=== PATIENT | male | born 1955 | race Caucasian/White ===

== ENCOUNTER 2017-08-21 11:22 | Emergency (ER) | payer OTHER, MEDICAID ==
[2017-08-21] MEDS: PERCOCET 5MG/325MG TAB PO (12:24)
[2017-08-21] MEDS: KETOROLAC 60 MG/2 ML VIAL (J1885) IM (13:53)
== END 2017-08-21 14:38 | disposition home or self-care (01) ==
LOC: M ED 11:22
DX: R07.9 Chest pain, unspecified (principal); E07.9 Disorder of thyroid, unspecified; B19.20 Unspecified viral hepatitis C without hepatic coma; Z88.0 Allergy status to penicillin; Z79.899 Other long term (current) drug therapy; Z96.641 Presence of right artificial hip joint
CPT/HCPCS: J1885

== ENCOUNTER → 2017-10-15 | Outpatient (CLI) | payer OTHER, MEDICAID ==
[2017-10-15 12:20] LABS: ALBUMIN 3.7 GM/DL (3.2-5.2); ALBUMIN/GLOBULIN RATIO 1.19 (1.00-1.93); ALKALINE PHOSPHATASE 55 U/L (45-117); ALT/SGPT 22 U/L (12-78); AST/SGOT 23 U/L (7-37); BILIRUBIN,DIRECT 0.1 MG/DL (0.0-0.2); BILIRUBIN,TOTAL 0.4 MG/DL (0.2-1.0); TOTAL PROTEIN 6.8 GM/DL (6.4-8.2)
== END ==
LOC: M LAB 10:49
DX: E11.9 Type 2 diabetes mellitus without complications (principal)
CPT/HCPCS: 80076

== ENCOUNTER → 2018-09-08 | Outpatient (CLI) | payer OTHER ==
[~2018-09-08] MED LIST: LEVO137T14 PO; PANT40TA3 PO; PERC5TAB12 PO; SILD50TA GT
[2018-09-08 11:40] LABS: BASO % 0.5 % (0.0-1.0); EOS # 0.4 10^3/uL (0.0-0.50); EOS % 4.4 % (0.0-3.0); HEMATOCRIT 43.9 % (42.0-52.0); HEMOGLOBIN 14.9 g/dl (13.5-17.5); LYMPH # 1.9 10^3/uL (1.5-4.5); LYMPH % 23.2 % (24.0-44.0); MEAN CORPUSCULAR HEMOGLOBIN 29.9 pg (27.0-33.0); MEAN CORPUSCULAR HGB CONC 33.9 g/dl (32.0-36.5); MEAN CORPUSCULAR VOLUME 88.2 fl (80.0-96.0); MONO % 12.2 % (0.0-5.0); NEUTROPHILS # 4.7 10^3/uL (1.8-7.7); NEUTROPHILS % 59.2 % (36.0-66.0); PLATELET COUNT, AUTOMATED 208 10^3/uL (150-450); RED BLOOD COUNT 4.98 10^6/uL (4.30-6.10)
[2018-09-08 12:11] LABS: ALBUMIN 3.8 GM/DL (3.2-5.2); PERCENT SATURATION 17.6 % (19.7-50.0)
== END ==
LOC: M LAB 10:57
PROVIDERS: ATTEND Family Medicine
DX: Z01.818 Encounter for other preprocedural examination (principal); M16.12 Unilateral primary osteoarthritis, left hip; D50.9 Iron deficiency anemia, unspecified

== ENCOUNTER 2019-04-19 08:34 | Day surgery (SDC) | payer MEDICARE, MEDICAID ==
[~2019-04-19] VITALS: Ht 180.3 cm; Wt 102.5 kg
[~2019-04-19 08:34] MED LIST changes: +B COCAP4 PO; +CALC-132 PO; +CLINDAMYCIN 900 MG in IV 1 EA IV ONE; +CYAN2500 PO; +HM P99TA PO; +IRON65TA2 PO; +LIDOCAINE 1% MDV 20ML VIAL SQ PRN; +LIDOCAINE 2% INJ 100 MG/5 ML SDV (FOR ANES.) As Ordered ONE; +LR 1,000 ML IV ONE; +MIDAZOLAM INJ 2 MG/2 ML VIAL (J2250) As Ordered ONE; +NATU1TAB5 PO; +OYST1TAB PO; +VITA100T59 PO; +VITA400C56 PO; +VITA40TA PO; +ZINC1TAB2 PO; +[UNRECOGNIZED DRUG - CODE] PO; +fentaNYL 250 MCG/5 ML INJECTION (J3010) As Ordered ONE; +propofoL 200 MG/20 ML VIAL As Ordered ONE
[2019-04-19] MEDS ORDERED: BUPIVACAINE HCL 0.5% 30 ML VIAL As Ordered ONE (10:05)
[2019-04-19] MEDS ORDERED: KETOROLAC 60 MG/2 ML VIAL (J1885) As Ordered ONE (10:39)
[2019-04-19] MEDS ORDERED: ONDANSETRON 4MG/2ML VIAL (J2405) As Ordered ONE (10:39)
[2019-04-19] MEDS ORDERED: dexameTHASONE 4 MG/ML 1ML VIAL (J1100) As Ordered ONE (10:39)
[2019-04-19] MEDS ORDERED: DESFLURANE 240 ML INHALANT As Ordered ONE (12:55)
[2019-04-19] MEDS ORDERED: fentaNYL 100 MCG/2 ML INJECTION (J3010) IV PRN (15:00)
[2019-04-19] MEDS ORDERED: METOCLOPRAMIDE INJ 10MG/2ML VIAL (J2765) IV PRN (15:00)
[2019-04-19] MEDS ORDERED: PERCOCET 5MG/325MG TAB PO PRN (15:00)
[2019-04-19] MEDS ORDERED: LR 1,000 ML IV SCH (15:00)
[2019-04-19] MEDS ORDERED: ONDANSETRON 4MG/2ML VIAL (J2405) IV PRN (15:00)
[2019-04-19 15:55] VITALS: BP 138/79
--- NOTE | 2019-04-20 21:36 | RO ---
DATE OF PROCEDURE: 04/19/2019 PREPROCEDURE DIAGNOSES: Right hallux valgus deformity and 2nd and 3rd hammertoes with lateral subluxation. POSTPROCEDURE DIAGNOSES: Right hallux valgus deformity and 2nd and 3rd hammertoes with lateral subluxation. PROCEDURE: 1. Right Bogdan osteotomy of the great toe. 2. Right silver osteotomy of the 1st metatarsal/medial eminence resection. 3. 2nd metatarsal shortening osteotomy. 4. 3rd metatarsal shortening osteotomy. 5. 2nd hammertoe repair with proximal interphalangeal (PIP) fusion and extensor digitorum longus (EDL) lengthening and pinning. 6. 3rd hammertoe repair with EDL lengthening and pinning. SURGEON: Dejah Iqbal MD DYNAMICIST: JOSE Acevedo ANESTHESIA: LMA. ESTIMATED BLOOD LOSS: 25 mL. COMPLICATIONS: None. CONDITION: Stable to recovery. IMPLANTS: 1. BME Speed Staple 9 x 7 times one. 2. Arthrex 12 mm snap-off screws x2. 3. 1.6mm k wires x2 INDICATIONS: Antonio Delarosa is a 63-year-old male who has had significant pain due to lateral deviation of 2nd and 3rd hammertoes. He has failed conservative measures. Risks and benefits of surgery were discussed with the patient in detail and include but are not limited to infection, damage to nerves and blood vessels, continued pain and stiffness, need for additional procedures. Informed consent was obtained prior to the procedure. DESCRIPTION OF PROCEDURE: The patient was met in the holding area where his right 1st, 2nd, 3rd and 4th toes were marked. There was a possibility of operating on the 4th toe; however, this did not need to be done. He was then taken to the operating room and placed in the supine position on the operating room table. Bony prominences were well padded. He underwent general anesthesia without difficulty. Antibiotics were given within 60 minutes prior to incision. A bump was placed under the right hip. Right lower extremity was prepped and draped in the normal sterile fashion. An official time-out was held where the correct patient, operative site and operative procedure were verified. Appropriate radiographs were displayed in the operating room. At this point, incision was made in the 2nd webspace. The 2nd EDL tendon was identified and Z-lengthened. A segment of the extensor digitorum brevis (EDB) tendon was excised. A longitudinal capsulotomy was performed. Care was made to ensure the medial and collateral ligaments remained intact over the metatarsal. I did release all tissue off the lateral aspect of the proximal phalanx given the significant lateral subluxation of the toe itself. Following this, the 3rd toe was approached using a separate interval but the same incision. The EDL tendon also was Z-lengthened. A segment of the EDB tendon was excised. Similarly, a longitudinal capsulotomy was performed and all tissue was removed off the lateral aspect of the proximal phalanx. At this point, I was still not able to gain full reduction of the toe, so a decision was made to proceed with a Misty osteotomy of the 2nd and 3rd metatarsal. This was done using a 38 saw. On the 2nd toe, I shortened it approximately 4 mm. I shortened the 5th toe approximately 5 mm. These were secured in place using a #2-0 snap-off screw from Arthrex, 12 mm in length. Final position of the osteotomies were confirmed on mini C-arm, which I operated throughout the case. There was satisfactory alignment and a nice cascade of the metatarsal heads. Next, attention was turned back to the 2nd toe. When it was adequately reduced, the great toe did impede on it. I did move my attention to the great toe at this point. A medial incision was made over the proximal phalanx and 1st metatarsal head. Careful dissection was performed to avoid the dorsomedial sensory nerve. Capsule was incised. A medial eminence resection was performed. 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 Next, a 0.062 wire was used to jairo my osteotomy site for the Bogdan osteotomy of the proximal phalanx. When I was satisfied with this on imaging, the wire was removed and the cut was made using a 38 mm saw. A small wedge was taken. The toe was secured in place using a 9 x 7 mm BME Speed Staple. There was adequate fixation. The capsule was slightly tightened using #0 Vicryl. The great toe was in adequate position at this point. My attention was turned back to the 2nd toe. There was still significant lateral drift, a portion of which was due to deviation through the PIP and DIP joints. A decision was made to fuse the PIP joint of the 2nd toe. Incision was made over the PIP joint and the extensor tendon was incised. The joint was removed using a 39 saw and pinned in place. I did reef the medial capsule as well to help bring the joint over; however, given its chronic subluxation, it was still slightly laterally sublux. I did decide to pin across the metatarsophalangeal (MTP) joint. This was done just slightly across the joint and x-rays showed adequate placement. It was not necessary to pin across the 3rd MTP joint. The toe was pinned in place without fusing the PIP joint. It was slightly plantar flexed down with Steri-Strips at the end of the case. Copious irrigation was performed. The 2nd and 3rd EDL tendons were Z-lengthened and secured with appropriate tension using #3-0 Vicryl. Subcutaneous tissue was closed using #3-0 Vicryl and skin was closed using #3-0 nylon and then #4-0 Monocryl over the PIP site. Tourniquet was let down and the toes were warm and well perfused at the end of the case. A sterile dressing was applied. The patient was placed into a well-padded splint. JOSE Acevedo was present for the entire procedure and essential for aid in soft tissue retraction, hardware placement, and overall decrease in tourniquet time. PLAN: The patient will be non-weightbearing on the right lower extremity. He will keep a close eye on his toes to make sure that they remain perfused. I did speak to his about this as well. I will see him back in 2 weeks for a wound check and possible suture removal. The max he should elevate it would be only one pillow. Any issues he will let us know. He will also be on aspirin for deep vein thrombosis (DVT) prophylaxis. THANG
== END 2019-04-19 16:26 | disposition home or self-care (01) ==
LOC: M SDC 08:34
PROVIDERS: ATTEND Orthopaedic Surgery
DX: M20.11 Hallux valgus (acquired), right foot (principal); M20.41 Other hammer toe(s) (acquired), right foot; M21.611 Bunion of right foot; E03.9 Hypothyroidism, unspecified; Z87.891 Personal history of nicotine dependence; Z79.899 Other long term (current) drug therapy; Z88.0 Allergy status to penicillin
CPT/HCPCS: 28285; 28298; 28308; 73630; C1713; J1100; J1885; J2250; J2405; J3010

== ENCOUNTER → 2020-01-04 | Outpatient (CLI) | payer MEDICARE, MEDICAID ==
[~2020-01-04] MED LIST changes: -CLINDAMYCIN 900 MG in IV 1 EA IV ONE; -LIDOCAINE 1% MDV 20ML VIAL SQ PRN; -LIDOCAINE 2% INJ 100 MG/5 ML SDV (FOR ANES.) As Ordered ONE; -LR 1,000 ML IV ONE; -MIDAZOLAM INJ 2 MG/2 ML VIAL (J2250) As Ordered ONE; -fentaNYL 250 MCG/5 ML INJECTION (J3010) As Ordered ONE; -propofoL 200 MG/20 ML VIAL As Ordered ONE
--- NOTE | 2020-01-05 17:25 | REP ---
REASON: Chronic hepatitis. Priors reviewed. Multiple ultrasonographic images of the liver show the hepatic parenchymal echo pattern to have a heterogenous appearance. The gallbladder is contracted. The common bile duct measures 6 mm. There are no masses. The pancreas is unchanged. The right kidney is again seen to be within normal limits. IMPRESSION: There is no evidence of acute disease. The hepatic parenchymal echo pattern is somewhat heterogeneous, but there are no masses.
== END ==
LOC: M PLAIMG 09:05
PROVIDERS: ATTEND Physician Assistant
DX: B18.2 Chronic viral hepatitis C (principal); K74.0 Hepatic fibrosis

== ENCOUNTER → 2020-01-04 | Outpatient (CLI) | payer MEDICARE, MEDICAID ==
[2020-01-04 13:57] LABS: ALBUMIN 3.7 GM/DL (3.2-5.2); ALT/SGPT 25 U/L (12-78); BILIRUBIN,DIRECT 0.1 MG/DL (0.0-0.2); BILIRUBIN,TOTAL 0.4 MG/DL (0.2-1.0); TOTAL PROTEIN 6.4 GM/DL (6.4-8.2)
[2020-01-07 05:07] LABS: HEPATITIS C QUANTITATION HCV Not Detected IU/mL (.)
== END ==
LOC: M PLALAB 09:36
PROVIDERS: ATTEND Physician Assistant
DX: B18.2 Chronic viral hepatitis C (principal); K74.0 Hepatic fibrosis

== ENCOUNTER → 2020-02-02 | Outpatient (CLI) | payer MEDICARE, MEDICAID ==
[~2020-02-02] MED LIST changes: +PANT40TA29 PO; -PANT40TA3 PO
[2020-02-02 16:10] LABS: HEMOGLOBIN A1c 5.3 %
[2020-02-02 16:26] LABS: FREE T4 0.72 NG/DL (0.76-1.46); RHEUMATOID FACTOR QUANT < 10.0 IU/ML (<15.0)
[2020-02-02 16:28] LABS: FOLATE 14.1 NG/ML; VITAMIN B12 LEVEL 1372 PG/ML
[2020-02-03 14:31] LABS: ALBUMIN % 64.5 % (55.8-66.1); ALPHA-1-GLOBULIN % 3.6 % (2.9-4.9); ALPHA-2-GLOBULINS % 11.4 % (7.1-11.8); BETA-1-GLOBULINS % 5.7 % (4.7-7.2); BETA-2-GLOBULINS % 4.6 % (3.2-6.5); GAMMA GLOBULIN % 10.2 % (11.1-18.8)
[2020-02-03 14:32] LABS: ALBUMIN 4.52 GM/DL (3.29-5.55); ALPHA-1-GLOBULINS 0.25 GM/DL (0.17-0.41); BETA-2-GLOBULINS 0.32 GM/DL (0.19-0.55); GAMMA GLOBULINS 0.71 GM/DL (0.65-1.58)
[2020-02-08 19:07] LABS: ANTINUCLEAR ANTIBODIES DIRECT Negative (Negative); Methylmalonic Acid 146 nmol/L (0-378); SJOGREN'S ANTI SS-A <0.2 AI (0.0-0.9); SJOGREN'S ANTI SS-B <0.2 AI (0.0-0.9); VITAMIN B1 LEVEL WHOLE BLOOD 171.9 nmol/L (66.5-200.0); VITAMIN B6,PYRIDOXAL PHOSPHATE 42.7 ug/L (5.3-46.7); VITAMIN E(GAMMA TOCOPHEROL) 0.7 mg/L (0.5-4.9)
== END ==
LOC: M PLALAB 13:55
PROVIDERS: ATTEND Psychiatry & Neurology Neurology
DX: G62.9 Polyneuropathy, unspecified (principal); E07.9 Disorder of thyroid, unspecified; E11.9 Type 2 diabetes mellitus without complications; Q87.19 Other congenital malformation syndromes predominantly associated with short stature

== ENCOUNTER → 2020-03-15 | Outpatient (REF) | payer MEDICARE, MEDICAID ==
[2020-03-15 16:06] LABS: COLOR, URINE MANUAL YELLOW (YELLOW)
[2020-03-15 16:07] LABS: APPEARANCE, URINE MANUAL HAZY (CLEAR); BILIRUBIN, URINE MANUAL NEGATIVE (NEGATIVE); BLOOD URINE MANUAL NEGATIVE (NEGATIVE); GLUCOSE, URINE (UA) MANUAL NEGATIVE (NEGATIVE); KETONE, URINE MANUAL NEGATIVE (NEGATIVE); LEUKOCYTE ESTERASE, URINE MAN NEGATIVE (NEGATIVE); NITRITE, URINE MANUAL NEGATIVE (NEGATIVE); PH,URINE MAN 7.5 UNITS (5.0 - 7.0); PROTEIN, URINE MANUAL NEGATIVE (NEGATIVE); SPECIFIC GRAVITY,URINE MANUAL 1.015 (1.002-1.035); UROBILINOGEN, URINE MANUAL NORMAL (NORMAL)
[2020-03-15 16:13] LABS: AMORPHOUS SEDIMENT, URINE LARGE AMOUNT (NEGATIVE); BACTERIA, URINE NONE SEEN; HYALINE CAST, URINE NONE SEEN /lpf (0-1); RBC, URINE NONE SEEN /hpf (0-3); SQUAMOUS EPITHELIAL CELL URINE NONE SEEN /hpf (SMALL AMT)
[2020-03-15 16:55] LABS: BASO % 0.5 % (0.0-1.0); EOS # 0.1 10^3/uL (0.0-0.5); EOS % 2.7 % (0.0-3.0); HEMATOCRIT 45.4 % (42.0-52.0); LYMPH # 1.5 10^3/uL (1.5-5.0); LYMPH % 35.5 % (24.0-44.0); MEAN CORPUSCULAR HEMOGLOBIN 30.7 pg (27.0-33.0); MONO # 0.5 10^3/uL (0.0-0.8); MONO % 12.2 % (0.0-5.0); NEUTROPHILS % 48.9 % (36.0-66.0); PLATELET COUNT, AUTOMATED 201 10^3/uL (150-450); RED BLOOD COUNT 4.88 10^6/uL (4.30-6.10); WHITE BLOOD COUNT 4.1 10^3/uL (4.0-10.0)
[2020-03-15 17:43] LABS: BLOOD UREA NITROGEN 17 MG/DL (7-18); CALCIUM LEVEL 9.2 MG/DL (8.8-10.2); CARBON DIOXIDE LEVEL 32 MEQ/L (21-32); CHLORIDE LEVEL 104 MEQ/L (98-107); CREATININE FOR GFR 1.23 MG/DL (0.70-1.30); GLOMERULAR FILTRATION RATE > 60.0 (>49); GLUCOSE, FASTING 97 MG/DL (70-100); POTASSIUM SERUM 4.5 MEQ/L (3.5-5.1); SODIUM LEVEL 140 MEQ/L (136-145)
[2020-03-15 19:07] LABS: HEMOGLOBIN A1c 5.4 %
== END ==
LOC: M LABSMT 13:34
PROVIDERS: ATTEND Orthopaedic Surgery Orthopaedic Surgery of the Spine
DX: Z01.818 Encounter for other preprocedural examination (principal)

== ENCOUNTER → 2020-06-15 | Outpatient (CLI) | payer MEDICARE, MEDICAID | LOC: M PLALAB 11:26 | PROVIDERS: ATTEND Orthopaedic Surgery | DX: Z96.642 Presence of left artificial hip joint (principal); T56.891A Toxic effect of other metals, accidental (unintentional), initial encounter ==

== ENCOUNTER → 2021-02-26 | Outpatient (CLI) | payer MEDICARE, MEDICAID ==
[~2021-02-26] MED LIST changes: -HM P99TA PO; +POTA99TA14 PO
[2021-02-26 08:31] LABS: ALBUMIN 3.8 GM/DL (3.2-5.2); BILIRUBIN,DIRECT 0.1 MG/DL (0.0-0.2); BILIRUBIN,TOTAL 0.5 MG/DL (0.2-1.0)
--- NOTE | 2021-02-26 09:12 | REP ---
INDICATION: HEP C PT HAS LABS FIRST. COMPARISON: Abdomen/pelvis CT without IV contrast dated 12/18/2005, hepatic ultrasound dated 06/20/2014, hepatic ultrasound dated 01/04/2020. TECHNIQUE: Multiple ultrasonographic images of the abdominal right upper quadrant. FINDINGS: The gallbladder is partially contracted. There are 2 echogenic foci in the body and neck of the gallbladder the larger measuring 5.8 mm in diameter and the smaller measuring 2.5 mm in diameter. These may represent adherent gallbladder calculi or calcified gallbladder polyps. They are nonmobile. The gallbladder wall is thickened measuring up to 5.8 mm. However, this is likely a consequence of incomplete gallbladder distention. There is no pericholecystic fluid. The common biliary duct is dilated measuring up to 6.5 mm, however, this is unchanged from the prior ultrasound study of 01/04/2020. There is no intrahepatic biliary duct dilatation. There are limited views of the pancreas because of the interfering bowel gas. The right kidney is normal size measuring 11.4 x 6.1 x 4.7 cm. There is no renal calculus, hydronephrosis, cyst or mass. There is no intraperitoneal free fluid. IMPRESSION: There are no hepatic masses. No a patent nodularity. The common biliary duct is dilated as described, however, unchanged from 01/04/2020. No intrahepatic biliary duct dilatation. No free intraperitoneal fluid. Limited views of the pancreas because of bowel gas. <Electronically signed by Usman Garcia > 02/26/21 [id number]
== END ==
LOC: M LAB 07:33 → M RAD 07:33
PROVIDERS: ATTEND Physician Assistant
DX: B18.2 Chronic viral hepatitis C (principal); K74.00 Hepatic fibrosis, unspecified; Z86.010 Personal history of colon polyps; Z83.71 Family history of colonic polyps

== ENCOUNTER → 2021-08-14 | Outpatient (CLI) | payer MEDICARE, MEDICAID ==
[2021-08-14 14:28] LABS: BASO % 0.4 % (0.0-1.0); EOS # 0.1 10^3/uL (0.0-0.5); EOS % 1.6 % (0.0-3.0); HEMATOCRIT 45.4 % (42.0-52.0); HEMOGLOBIN 15.1 g/dl (13.5-17.5); LYMPH # 1.6 10^3/uL (1.5-5.0); LYMPH % 20.6 % (24.0-44.0); MEAN CORPUSCULAR HEMOGLOBIN 29.6 pg (27.0-33.0); MEAN CORPUSCULAR HGB CONC 33.3 g/dl (32.0-36.5); MONO # 1.2 10^3/uL (0.0-0.8); MONO % 15.2 % (2.0-8.0); NEUTROPHILS # 4.7 10^3/uL (1.5-8.5); NEUTROPHILS % 61.7 % (36.0-66.0); PLATELET COUNT, AUTOMATED 199 10^3/uL (150-450); WHITE BLOOD COUNT 7.6 10^3/uL (4.0-10.0)
[2021-08-14 14:59] LABS: BLOOD UREA NITROGEN 22 MG/DL (7-18); CALCIUM LEVEL 9.9 MG/DL (8.8-10.2); CARBON DIOXIDE LEVEL 28 MEQ/L (21-32); CHLORIDE LEVEL 106 MEQ/L (98-107); CREATININE FOR GFR 1.24 MG/DL (0.70-1.30); GLOMERULAR FILTRATION RATE > 60.0 (>49); GLUCOSE, FASTING 100 MG/DL (70-100); POTASSIUM SERUM 4.6 MEQ/L (3.5-5.1); SODIUM LEVEL 141 MEQ/L (136-145)
== END ==
LOC: M LAB 13:58
PROVIDERS: ATTEND Orthopaedic Surgery
DX: Z01.818 Encounter for other preprocedural examination (principal); M17.12 Unilateral primary osteoarthritis, left knee

== ENCOUNTER → 2022-03-18 | Outpatient (REF) | payer MEDICARE, MEDICAID ==
[2022-03-18 12:14] LABS: BASO # 0.1 10^3/uL (0.0-0.2); BASO % 0.5 % (0.0-1.0); EOS # 0.3 10^3/uL (0.0-0.5); HEMATOCRIT 33.7 % (42.0-52.0); HEMOGLOBIN 11.1 g/dl (13.5-17.5); LYMPH # 1.5 10^3/uL (1.5-5.0); LYMPH % 13.3 % (24.0-44.0); MEAN CORPUSCULAR HGB CONC 32.9 g/dl (32.0-36.5); MEAN CORPUSCULAR VOLUME 85.1 fl (80.0-96.0); MONO # 1.2 10^3/uL (0.0-0.8); MONO % 10.5 % (2.0-8.0); NEUTROPHILS # 7.5 10^3/uL (1.5-8.5); NEUTROPHILS % 68.1 % (36.0-66.0); PLATELET COUNT, AUTOMATED 385 10^3/uL (150-450); RED BLOOD COUNT 3.96 10^6/uL (4.30-6.10)
[2022-03-18 12:41] LABS: ERYTHROCYTE SEDIMENTATION RATE 86 mm/hr (0-20)
[2022-03-18 13:00] LABS: ALBUMIN 2.3 GM/DL (3.2-5.2); ALT/SGPT 16 U/L (12-78); BILIRUBIN,TOTAL 0.6 MG/DL (0.2-1.0); BLOOD UREA NITROGEN 8 MG/DL (7-18); CALCIUM LEVEL 8.1 MG/DL (8.8-10.2); CARBON DIOXIDE LEVEL 30 MEQ/L (21-32); CHLORIDE LEVEL 101 MEQ/L (98-107); GLOMERULAR FILTRATION RATE > 60.0 (>49); GLUCOSE, FASTING 109 MG/DL (70-100); SODIUM LEVEL 136 MEQ/L (136-145); TOTAL PROTEIN 5.9 GM/DL (6.4-8.2)
== END ==
LOC: M LAB REF 11:47
PROVIDERS: ATTEND Nurse Practitioner Family
DX: M00.9 Pyogenic arthritis, unspecified (principal); A49.8 Other bacterial infections of unspecified site; Z79.2 Long term (current) use of antibiotics

== ENCOUNTER → 2022-03-18 | Outpatient (REF) | payer MEDICARE, MEDICAID ==
[2022-03-18 12:09] LABS: BASO # 0.1 10^3/uL (0.0-0.2); BASO % 0.5 % (0.0-1.0); EOS # 0.3 10^3/uL (0.0-0.5); EOS % 2.6 % (0.0-3.0); HEMATOCRIT 33.8 % (42.0-52.0); HEMOGLOBIN 11.1 g/dl (13.5-17.5); LYMPH # 1.5 10^3/uL (1.5-5.0); LYMPH % 13.7 % (24.0-44.0); MEAN CORPUSCULAR HGB CONC 32.8 g/dl (32.0-36.5); MEAN CORPUSCULAR VOLUME 85.4 fl (80.0-96.0); MONO # 1.2 10^3/uL (0.0-0.8); MONO % 10.5 % (2.0-8.0); NEUTROPHILS # 7.6 10^3/uL (1.5-8.5); NEUTROPHILS % 67.8 % (36.0-66.0); PLATELET COUNT, AUTOMATED 388 10^3/uL (150-450); RED BLOOD COUNT 3.96 10^6/uL (4.30-6.10); WHITE BLOOD COUNT 11.2 10^3/uL (4.0-10.0)
[2022-03-18 13:16] LABS: ALBUMIN 2.2 GM/DL (3.2-5.2); ALT/SGPT 18 U/L (12-78); BILIRUBIN,DIRECT 0.2 MG/DL (0.0-0.2); BILIRUBIN,TOTAL 0.6 MG/DL (0.2-1.0); CREATININE FOR GFR 0.82 MG/DL (0.70-1.30); GLOMERULAR FILTRATION RATE > 60.0 (>49); TOTAL PROTEIN 5.9 GM/DL (6.4-8.2)
== END ==
LOC: M LAB REF 11:45
PROVIDERS: ATTEND Internal Medicine Infectious Disease
DX: M00.9 Pyogenic arthritis, unspecified (principal); A49.8 Other bacterial infections of unspecified site; Z79.2 Long term (current) use of antibiotics

== ENCOUNTER → 2022-03-25 | Outpatient (REF) | payer MEDICARE, MEDICAID ==
[2022-03-25 13:56] LABS: BASO # 0.1 10^3/uL (0.0-0.2); BASO % 0.9 % (0.0-1.0); EOS # 0.3 10^3/uL (0.0-0.5); EOS % 3.9 % (0.0-3.0); HEMATOCRIT 35.8 % (42.0-52.0); HEMOGLOBIN 11.1 g/dl (13.5-17.5); LYMPH # 1.7 10^3/uL (1.5-5.0); LYMPH % 25.1 % (24.0-44.0); MEAN CORPUSCULAR HEMOGLOBIN 26.9 pg (27.0-33.0); MEAN CORPUSCULAR VOLUME 86.7 fl (80.0-96.0); MONO # 0.8 10^3/uL (0.0-0.8); MONO % 11.8 % (2.0-8.0); NEUTROPHILS # 3.9 10^3/uL (1.5-8.5); NEUTROPHILS % 57.6 % (36.0-66.0); PLATELET COUNT, AUTOMATED 400 10^3/uL (150-450); RED BLOOD COUNT 4.13 10^6/uL (4.30-6.10); WHITE BLOOD COUNT 6.7 10^3/uL (4.0-10.0)
[2022-03-25 14:42] LABS: ERYTHROCYTE SEDIMENTATION RATE 70 mm/hr (0-20)
[2022-03-25 16:05] LABS: ALBUMIN 2.6 GM/DL (3.2-5.2); ALT/SGPT 16 U/L (12-78); BILIRUBIN,TOTAL 0.5 MG/DL (0.2-1.0); BLOOD UREA NITROGEN 10 MG/DL (7-18); C REACTIVE PROTEIN QUANTITATIV 5.48 MG/DL (0.00-0.30); CALCIUM LEVEL 8.7 MG/DL (8.8-10.2); CARBON DIOXIDE LEVEL 31 MEQ/L (21-32); CHLORIDE LEVEL 103 MEQ/L (98-107); CREATININE FOR GFR 0.94 MG/DL (0.70-1.30); GLOMERULAR FILTRATION RATE > 60.0 (>49); GLUCOSE, FASTING 97 MG/DL (70-100); POTASSIUM SERUM 4.4 MEQ/L (3.5-5.1); SODIUM LEVEL 138 MEQ/L (136-145); TOTAL PROTEIN 6.3 GM/DL (6.4-8.2)
== END ==
LOC: M LAB REF 13:16
PROVIDERS: ATTEND Internal Medicine Infectious Disease
DX: Z51.81 Encounter for therapeutic drug level monitoring (principal); Z79.2 Long term (current) use of antibiotics

== ENCOUNTER → 2022-04-01 | Outpatient (REF) | payer MEDICARE, MEDICAID ==
[2022-04-01 13:00] LABS: BASO % 0.7 % (0.0-1.0); EOS # 0.3 10^3/uL (0.0-0.5); EOS % 4.4 % (0.0-3.0); HEMOGLOBIN 11.6 g/dl (13.5-17.5); LYMPH # 1.5 10^3/uL (1.5-5.0); LYMPH % 25.3 % (24.0-44.0); MEAN CORPUSCULAR HGB CONC 31.4 g/dl (32.0-36.5); MONO # 0.9 10^3/uL (0.0-0.8); MONO % 14.8 % (2.0-8.0); NEUTROPHILS # 3.2 10^3/uL (1.5-8.5); NEUTROPHILS % 54.3 % (36.0-66.0); PLATELET COUNT, AUTOMATED 289 10^3/uL (150-450); WHITE BLOOD COUNT 5.9 10^3/uL (4.0-10.0)
[2022-04-01 13:33] LABS: ALT/SGPT 14 U/L (12-78); BILIRUBIN,DIRECT 0.1 MG/DL (0.0-0.2); BILIRUBIN,TOTAL 0.5 MG/DL (0.2-1.0); BLOOD UREA NITROGEN 10 MG/DL (7-18); CARBON DIOXIDE LEVEL 28 MEQ/L (21-32); CHLORIDE LEVEL 102 MEQ/L (98-107); CREATININE FOR GFR 0.89 MG/DL (0.70-1.30); GLOMERULAR FILTRATION RATE > 60.0 (>49); GLUCOSE, FASTING 82 MG/DL (70-100); POTASSIUM SERUM 4.4 MEQ/L (3.5-5.1); SODIUM LEVEL 136 MEQ/L (136-145); TOTAL PROTEIN 6.4 GM/DL (6.4-8.2)
[2022-04-01 13:47] LABS: ERYTHROCYTE SEDIMENTATION RATE 56 mm/hr (0-20)
== END ==
LOC: M LAB REF 12:42
PROVIDERS: ATTEND Internal Medicine Infectious Disease
DX: M00.9 Pyogenic arthritis, unspecified (principal); A49.8 Other bacterial infections of unspecified site; Z79.2 Long term (current) use of antibiotics

== ENCOUNTER → 2022-04-08 | Outpatient (REF) | payer MEDICARE, MEDICAID ==
[2022-04-08 17:50] LABS: BASO # 0.1 10^3/uL (0.0-0.2); BASO % 0.9 % (0.0-1.0); EOS # 0.4 10^3/uL (0.0-0.5); EOS % 7.8 % (0.0-3.0); HEMATOCRIT 37.8 % (42.0-52.0); HEMOGLOBIN 11.5 g/dl (13.5-17.5); LYMPH # 1.2 10^3/uL (1.5-5.0); LYMPH % 20.6 % (24.0-44.0); MEAN CORPUSCULAR HEMOGLOBIN 26.8 pg (27.0-33.0); MEAN CORPUSCULAR HGB CONC 30.4 g/dl (32.0-36.5); MEAN CORPUSCULAR VOLUME 88.1 fl (80.0-96.0); MONO # 0.8 10^3/uL (0.0-0.8); NEUTROPHILS # 3.2 10^3/uL (1.5-8.5); NEUTROPHILS % 56.2 % (36.0-66.0); PLATELET COUNT, AUTOMATED 211 10^3/uL (150-450); RED BLOOD COUNT 4.29 10^6/uL (4.30-6.10); WHITE BLOOD COUNT 5.6 10^3/uL (4.0-10.0)
[2022-04-08 18:45] LABS: ALBUMIN 3.2 GM/DL (3.2-5.2); ALT/SGPT 11 U/L (12-78); BILIRUBIN,DIRECT 0.2 MG/DL (0.0-0.2); BILIRUBIN,TOTAL 0.5 MG/DL (0.2-1.0); BLOOD UREA NITROGEN 10 MG/DL (7-18); C REACTIVE PROTEIN QUANTITATIV 3.27 MG/DL (0.00-0.30); CALCIUM LEVEL 8.9 MG/DL (8.8-10.2); CARBON DIOXIDE LEVEL 27 MEQ/L (21-32); CHLORIDE LEVEL 103 MEQ/L (98-107); GLOMERULAR FILTRATION RATE > 60.0 (>49); GLUCOSE, FASTING 123 MG/DL (70-100); SODIUM LEVEL 137 MEQ/L (136-145); TOTAL PROTEIN 6.4 GM/DL (6.4-8.2)
[2022-04-08 20:55] LABS: ERYTHROCYTE SEDIMENTATION RATE 45 mm/hr (0-20)
== END ==
LOC: M LAB REF 17:01
PROVIDERS: ATTEND Internal Medicine Infectious Disease
DX: M00.9 Pyogenic arthritis, unspecified (principal); A49.8 Other bacterial infections of unspecified site; Z79.2 Long term (current) use of antibiotics

== ENCOUNTER → 2022-04-15 | Outpatient (REF) | payer MEDICARE, MEDICAID ==
[2022-04-15 13:29] LABS: BASO % 0.7 % (0.0-1.0); EOS # 0.5 10^3/uL (0.0-0.5); EOS % 8.2 % (0.0-3.0); HEMATOCRIT 35.8 % (42.0-52.0); HEMOGLOBIN 11.4 g/dl (13.5-17.5); LYMPH # 1.3 10^3/uL (1.5-5.0); LYMPH % 21.8 % (24.0-44.0); MEAN CORPUSCULAR HEMOGLOBIN 27.6 pg (27.0-33.0); MEAN CORPUSCULAR HGB CONC 31.8 g/dl (32.0-36.5); MEAN CORPUSCULAR VOLUME 86.7 fl (80.0-96.0); MONO # 0.8 10^3/uL (0.0-0.8); NEUTROPHILS # 3.3 10^3/uL (1.5-8.5); NEUTROPHILS % 54.6 % (36.0-66.0); PLATELET COUNT, AUTOMATED 238 10^3/uL (150-450); RED BLOOD COUNT 4.13 10^6/uL (4.30-6.10)
[2022-04-15 14:07] LABS: ERYTHROCYTE SEDIMENTATION RATE 52 mm/hr (0-20)
[2022-04-15 15:09] LABS: ALBUMIN 3.1 GM/DL (3.2-5.2); ALT/SGPT 10 U/L (12-78); BILIRUBIN,TOTAL 0.5 MG/DL (0.2-1.0); BLOOD UREA NITROGEN 11 MG/DL (7-18); C REACTIVE PROTEIN QUANTITATIV 3.92 MG/DL (0.00-0.30); CALCIUM LEVEL 8.9 MG/DL (8.8-10.2); CARBON DIOXIDE LEVEL 26 MEQ/L (21-32); CHLORIDE LEVEL 106 MEQ/L (98-107); GLOMERULAR FILTRATION RATE > 60.0 (>49); GLUCOSE, FASTING 113 MG/DL (70-100); POTASSIUM SERUM 4.4 MEQ/L (3.5-5.1); SODIUM LEVEL 139 MEQ/L (136-145); TOTAL PROTEIN 6.2 GM/DL (6.4-8.2)
== END ==
LOC: M LAB REF 12:55
PROVIDERS: ATTEND Nurse Practitioner Family
DX: M00.9 Pyogenic arthritis, unspecified (principal); A49.8 Other bacterial infections of unspecified site; Z79.2 Long term (current) use of antibiotics

== ENCOUNTER → 2022-04-15 | Outpatient (REF) | payer MEDICARE, MEDICAID ==
[2022-04-15 13:24] LABS: BASO # 0.1 10^3/uL (0.0-0.2); BASO % 0.8 % (0.0-1.0); EOS # 0.5 10^3/uL (0.0-0.5); EOS % 7.7 % (0.0-3.0); HEMATOCRIT 36.3 % (42.0-52.0); HEMOGLOBIN 11.5 g/dl (13.5-17.5); LYMPH # 1.3 10^3/uL (1.5-5.0); LYMPH % 21.5 % (24.0-44.0); MEAN CORPUSCULAR HEMOGLOBIN 27.6 pg (27.0-33.0); MEAN CORPUSCULAR HGB CONC 31.7 g/dl (32.0-36.5); MEAN CORPUSCULAR VOLUME 87.1 fl (80.0-96.0); MONO # 0.8 10^3/uL (0.0-0.8); NEUTROPHILS # 3.4 10^3/uL (1.5-8.5); NEUTROPHILS % 56.2 % (36.0-66.0); PLATELET COUNT, AUTOMATED 236 10^3/uL (150-450); RED BLOOD COUNT 4.17 10^6/uL (4.30-6.10)
[2022-04-15 14:26] LABS: ALBUMIN 3.1 GM/DL (3.2-5.2); ALT/SGPT 12 U/L (12-78); BILIRUBIN,DIRECT 0.1 MG/DL (0.0-0.2); BILIRUBIN,TOTAL 0.4 MG/DL (0.2-1.0); GLOMERULAR FILTRATION RATE > 60.0 (>49); TOTAL PROTEIN 6.2 GM/DL (6.4-8.2)
== END ==
LOC: M LAB REF 12:53
PROVIDERS: ATTEND Internal Medicine Infectious Disease
DX: M00.9 Pyogenic arthritis, unspecified (principal); A49.8 Other bacterial infections of unspecified site; Z79.2 Long term (current) use of antibiotics

== ENCOUNTER → 2022-04-22 | Outpatient (REF) | payer MEDICARE, MEDICAID ==
[2022-04-22 16:36] LABS: BASO # 0.1 10^3/uL (0.0-0.2); BASO % 0.8 % (0.0-1.0); EOS # 0.4 10^3/uL (0.0-0.5); EOS % 6.7 % (0.0-3.0); HEMOGLOBIN 11.7 g/dl (13.5-17.5); LYMPH # 1.5 10^3/uL (1.5-5.0); LYMPH % 24.9 % (24.0-44.0); MEAN CORPUSCULAR HEMOGLOBIN 27.1 pg (27.0-33.0); MEAN CORPUSCULAR HGB CONC 31.6 g/dl (32.0-36.5); MEAN CORPUSCULAR VOLUME 85.6 fl (80.0-96.0); MONO # 0.8 10^3/uL (0.0-0.8); MONO % 13.7 % (2.0-8.0); NEUTROPHILS # 3.3 10^3/uL (1.5-8.5); NEUTROPHILS % 53.4 % (36.0-66.0); PLATELET COUNT, AUTOMATED 250 10^3/uL (150-450); RED BLOOD COUNT 4.32 10^6/uL (4.30-6.10); WHITE BLOOD COUNT 6.2 10^3/uL (4.0-10.0)
[2022-04-22 17:28] LABS: ALBUMIN 3.3 GM/DL (3.2-5.2); ALT/SGPT 11 U/L (12-78); BILIRUBIN,DIRECT 0.1 MG/DL (0.0-0.2); BILIRUBIN,TOTAL 0.4 MG/DL (0.2-1.0); BLOOD UREA NITROGEN 11 MG/DL (7-18); C REACTIVE PROTEIN QUANTITATIV 3.98 MG/DL (0.00-0.30); CALCIUM LEVEL 8.9 MG/DL (8.8-10.2); CARBON DIOXIDE LEVEL 26 MEQ/L (21-32); CHLORIDE LEVEL 107 MEQ/L (98-107); CREATININE FOR GFR 0.87 MG/DL (0.70-1.30); GLOMERULAR FILTRATION RATE > 60.0 (>49); GLUCOSE, FASTING 102 MG/DL (70-100); POTASSIUM SERUM 4.4 MEQ/L (3.5-5.1); SODIUM LEVEL 140 MEQ/L (136-145); TOTAL PROTEIN 6.5 GM/DL (6.4-8.2)
[2022-04-22 17:38] LABS: ERYTHROCYTE SEDIMENTATION RATE 44 mm/hr (0-20)
== END ==
LOC: M LAB REF 16:04
PROVIDERS: ATTEND Internal Medicine Infectious Disease
DX: M00.9 Pyogenic arthritis, unspecified (principal); A49.8 Other bacterial infections of unspecified site; Z79.2 Long term (current) use of antibiotics

== ENCOUNTER → 2022-04-29 | Outpatient (REF) | payer MEDICARE, MEDICAID ==
[2022-04-29 17:15] LABS: BASO % 0.3 % (0.0-1.0); EOS # 0.1 10^3/uL (0.0-0.5); EOS % 3.3 % (0.0-3.0); HEMATOCRIT 35.7 % (42.0-52.0); LYMPH # 1.3 10^3/uL (1.5-5.0); LYMPH % 33.6 % (24.0-44.0); MEAN CORPUSCULAR HEMOGLOBIN 26.7 pg (27.0-33.0); MEAN CORPUSCULAR HGB CONC 30.8 g/dl (32.0-36.5); MEAN CORPUSCULAR VOLUME 86.7 fl (80.0-96.0); MONO # 0.6 10^3/uL (0.0-0.8); MONO % 16.2 % (2.0-8.0); NEUTROPHILS # 1.8 10^3/uL (1.5-8.5); NEUTROPHILS % 46.1 % (36.0-66.0); PLATELET COUNT, AUTOMATED 205 10^3/uL (150-450); RED BLOOD COUNT 4.12 10^6/uL (4.30-6.10)
[2022-04-29 17:56] LABS: ERYTHROCYTE SEDIMENTATION RATE 49 mm/hr (0-20)
[2022-04-29 17:58] LABS: ALBUMIN 3.2 GM/DL (3.2-5.2); ALT/SGPT 12 U/L (12-78); BILIRUBIN,TOTAL 0.3 MG/DL (0.2-1.0); BLOOD UREA NITROGEN 9 MG/DL (7-18); C REACTIVE PROTEIN QUANTITATIV 2.36 MG/DL (0.00-0.30); CALCIUM LEVEL 8.8 MG/DL (8.8-10.2); CARBON DIOXIDE LEVEL 29 MEQ/L (21-32); CHLORIDE LEVEL 105 MEQ/L (98-107); GLOMERULAR FILTRATION RATE > 60.0 (>49); GLUCOSE, FASTING 93 MG/DL (70-100); POTASSIUM SERUM 4.5 MEQ/L (3.5-5.1); SODIUM LEVEL 138 MEQ/L (136-145); TOTAL PROTEIN 6.4 GM/DL (6.4-8.2)
== END ==
LOC: M LAB REF 16:01
PROVIDERS: ATTEND Nurse Practitioner Family
DX: M00.9 Pyogenic arthritis, unspecified (principal); A49.8 Other bacterial infections of unspecified site; Z79.2 Long term (current) use of antibiotics

== ENCOUNTER → 2022-04-29 | Outpatient (REF) | payer MEDICARE, MEDICAID ==
[2022-04-29 18:01] LABS: ALBUMIN 3.2 GM/DL (3.2-5.2); ALT/SGPT 13 U/L (12-78); BILIRUBIN,DIRECT 0.1 MG/DL (0.0-0.2); BILIRUBIN,TOTAL 0.3 MG/DL (0.2-1.0); CREATININE FOR GFR 0.72 MG/DL (0.70-1.30); GLOMERULAR FILTRATION RATE > 60.0 (>49); TOTAL PROTEIN 6.4 GM/DL (6.4-8.2)
[2022-04-29 18:17] LABS: BASO % 0.3 % (0.0-1.0); EOS # 0.1 10^3/uL (0.0-0.5); HEMATOCRIT 35.6 % (42.0-52.0); HEMOGLOBIN 11.1 g/dl (13.5-17.5); LYMPH # 1.4 10^3/uL (1.5-5.0); LYMPH % 33.9 % (24.0-44.0); MEAN CORPUSCULAR HEMOGLOBIN 26.9 pg (27.0-33.0); MEAN CORPUSCULAR HGB CONC 31.2 g/dl (32.0-36.5); MEAN CORPUSCULAR VOLUME 86.2 fl (80.0-96.0); MONO # 0.6 10^3/uL (0.0-0.8); MONO % 15.3 % (2.0-8.0); NEUTROPHILS # 1.9 10^3/uL (1.5-8.5); PLATELET COUNT, AUTOMATED 209 10^3/uL (150-450); RED BLOOD COUNT 4.13 10^6/uL (4.30-6.10)
== END ==
LOC: M LAB REF 15:59
PROVIDERS: ATTEND Internal Medicine Infectious Disease
DX: M00.9 Pyogenic arthritis, unspecified (principal); A49.8 Other bacterial infections of unspecified site; Z79.2 Long term (current) use of antibiotics

== ENCOUNTER → 2022-05-06 | Outpatient (CLI) | payer MEDICARE, MEDICAID | LOC: M LAB 11:21 | PROVIDERS: ATTEND Orthopaedic Surgery | DX: M25.562 Pain in left knee (principal); Z48.89 Encounter for other specified surgical aftercare; Z96.649 Presence of unspecified artificial hip joint ==

== ENCOUNTER → 2022-05-20 | Outpatient (CLI) | payer MEDICARE, MEDICAID | LOC: M LAB 09:29 | PROVIDERS: ATTEND Orthopaedic Surgery | DX: Z96.649 Presence of unspecified artificial hip joint (principal); Z48.89 Encounter for other specified surgical aftercare; M25.562 Pain in left knee; T84.051A Periprosthetic osteolysis of internal prosthetic left hip joint, initial encounter ==

== ENCOUNTER → 2022-05-27 | Outpatient (REF) | payer MEDICARE, MEDICAID ==
[2022-05-27 13:35] LABS: APPEARANCE, URINE MANUAL CLEAR (CLEAR); COLOR, URINE MANUAL DK YELLOW (YELLOW); PROTEIN, URINE MANUAL NEGATIVE (NEGATIVE)
[2022-05-27 13:36] LABS: BILIRUBIN, URINE MANUAL NEGATIVE (NEGATIVE); BLOOD URINE MANUAL NEGATIVE (NEGATIVE); GLUCOSE, URINE (UA) MANUAL NEGATIVE (NEGATIVE); KETONE, URINE MANUAL NEGATIVE (NEGATIVE); LEUKOCYTE ESTERASE, URINE MAN NEGATIVE (NEGATIVE); NITRITE, URINE MANUAL NEGATIVE (NEGATIVE); UROBILINOGEN, URINE MANUAL NORMAL (NORMAL)
== END ==
LOC: M SMT 12:49
PROVIDERS: ATTEND Physician Assistant
DX: N39.0 Urinary tract infection, site not specified (principal)

== ENCOUNTER → 2022-06-03 | Outpatient (CLI) | payer MEDICARE, MEDICAID | LOC: M LAB 09:26 | PROVIDERS: ATTEND Orthopaedic Surgery | DX: M25.562 Pain in left knee (principal); T84.051A Periprosthetic osteolysis of internal prosthetic left hip joint, initial encounter; Z96.649 Presence of unspecified artificial hip joint; Z48.89 Encounter for other specified surgical aftercare ==

== ENCOUNTER → 2022-06-07 | Outpatient (CLI) | payer MEDICARE, MEDICAID | LOC: M LAB 12:44 | PROVIDERS: ATTEND Orthopaedic Surgery | DX: Z48.89 Encounter for other specified surgical aftercare (principal); M25.562 Pain in left knee; T84.051A Periprosthetic osteolysis of internal prosthetic left hip joint, initial encounter; Z96.649 Presence of unspecified artificial hip joint ==

== ENCOUNTER 2023-02-05 11:50 | Day surgery (SDC) | payer MEDICARE, MEDICAID ==
[~2023-02-05] VITALS: Ht 180.3 cm; Wt 97.8 kg
[~2023-02-05 11:50] MED LIST changes: +ACETYLCHOLINE OPHTH SOLN 1% 2ML (MIOCHOL-E) As Ordered ONE; +BSS IRRIG/VANCO(10MG)/TOBRA(5MG)/EPINEPH(1:1000-0.5CC)500ML BAG-ORONLY IR ONE; +CO Q10CA PO; +CYCLOPENTOLATE 1% OPHTH SOLN 2ML BTL OS SCH; +LIDOCAINE 1% SDV 5ML VIAL As Ordered ONE; +LIDOCAINE 3.5 % 1ML OPHTH TOPICAL GEL OU ONE; +MIDAZOLAM INJ 2MG/2ML VIAL As Ordered ONE; +OFLOXACIN 0.3 % (OCUFLOX) OPTH SOL 5ML OS ONE; +PHENYLEPHRINE 10% OPHTH SOL 5ML OS PRN; +PHENYLEPHRINE 2.5% OPHTH SOL 2ML OS SCH; +TROPICAMIDE 1% OPHTH SOLN 15ML OS SCH; +fentaNYL 100 MCG/2 ML INJECTION As Ordered ONE
[2023-02-05] MEDS ORDERED: CEFUROXIME 1MG/0.1ML INTRACAMERAL INJ As Ordered ONE (13:33)
[2023-02-05 14:20] VITALS: BP 121/71; TEMP 97.9; O2SAT 96
== END 2023-02-05 14:35 | disposition home or self-care (01) ==
LOC: M SDC 11:50
PROVIDERS: ATTEND Ophthalmology
DX: H25.12 Age-related nuclear cataract, left eye (principal); E03.9 Hypothyroidism, unspecified; B19.20 Unspecified viral hepatitis C without hepatic coma; M19.90 Unspecified osteoarthritis, unspecified site; G60.9 Hereditary and idiopathic neuropathy, unspecified; M54.9 Dorsalgia, unspecified; Z79.899 Other long term (current) drug therapy; Z88.0 Allergy status to penicillin; Z87.891 Personal history of nicotine dependence
CPT/HCPCS: 66984; J0697; J2250; J3010; V2632

== ENCOUNTER 2023-02-19 07:28 | Day surgery (SDC) | payer MEDICARE, MEDICAID ==
[~2023-02-19] VITALS: Ht 180.3 cm; Wt 95.5 kg
[~2023-02-19 07:28] MED LIST changes: -ACETYLCHOLINE OPHTH SOLN 1% 2ML (MIOCHOL-E) As Ordered ONE; +CEFUROXIME 1MG/0.1ML INTRACAMERAL INJ As Ordered ONE; -CYCLOPENTOLATE 1% OPHTH SOLN 2ML BTL OS SCH; +OFLOXACIN 0.3 % (OCUFLOX) OPTH SOL 5ML OD ONE; -OFLOXACIN 0.3 % (OCUFLOX) OPTH SOL 5ML OS ONE; +PHENYLEPHRINE 10% OPHTH SOL 5ML OD PRN; -PHENYLEPHRINE 10% OPHTH SOL 5ML OS PRN; -PHENYLEPHRINE 2.5% OPHTH SOL 2ML OS SCH; -TROPICAMIDE 1% OPHTH SOLN 15ML OS SCH; -fentaNYL 100 MCG/2 ML INJECTION As Ordered ONE
[2023-02-19] MEDS: PHENYLEPHRINE 2.5% OPHTH SOL 2ML OD SCH ×2 (08:30→08:39)
[2023-02-19] MEDS: TROPICAMIDE 1% OPHTH SOLN 15ML OD SCH ×2 (08:30→08:39)
[2023-02-19] MEDS: CYCLOPENTOLATE 1% OPHTH SOLN 2ML BTL OD SCH ×2 (08:31→08:39)
[2023-02-19] MEDS ORDERED: fentaNYL 100 MCG/2 ML INJECTION As Ordered ONE (09:55)
[2023-02-19 10:30] VITALS: BP 112/70; TEMP 97; O2SAT 99
== END 2023-02-19 10:50 | disposition home or self-care (01) ==
LOC: M SDC 07:28
PROVIDERS: ATTEND Ophthalmology
DX: H25.12 Age-related nuclear cataract, left eye (principal); E03.9 Hypothyroidism, unspecified; Z88.0 Allergy status to penicillin; G62.9 Polyneuropathy, unspecified; Z79.899 Other long term (current) drug therapy
CPT/HCPCS: 66984; J0697; J2250; J3010; V2632

== ENCOUNTER → 2023-03-21 | Outpatient (REF) | payer MEDICARE, MEDICAID ==
[~2023-03-21] MED LIST changes: -BSS IRRIG/VANCO(10MG)/TOBRA(5MG)/EPINEPH(1:1000-0.5CC)500ML BAG-ORONLY IR ONE; -CEFUROXIME 1MG/0.1ML INTRACAMERAL INJ As Ordered ONE; -LIDOCAINE 1% SDV 5ML VIAL As Ordered ONE; -LIDOCAINE 3.5 % 1ML OPHTH TOPICAL GEL OU ONE; -MIDAZOLAM INJ 2MG/2ML VIAL As Ordered ONE; -OFLOXACIN 0.3 % (OCUFLOX) OPTH SOL 5ML OD ONE; -PHENYLEPHRINE 10% OPHTH SOL 5ML OD PRN
[2023-03-21 17:13] LABS: BASO % 0.3 % (0.0-1.0); EOS # 0.2 10^3/uL (0.0-0.5); EOS % 3.4 % (0.0-3.0); HEMATOCRIT 42.7 % (42.0-52.0); HEMOGLOBIN 13.7 g/dl (13.5-17.5); LYMPH # 1.6 10^3/uL (1.5-5.0); MEAN CORPUSCULAR HEMOGLOBIN 29.1 pg (27.0-33.0); MEAN CORPUSCULAR HGB CONC 32.1 g/dl (32.0-36.5); MEAN CORPUSCULAR VOLUME 90.9 fl (80.0-96.0); MONO # 0.8 10^3/uL (0.0-0.8); MONO % 12.4 % (2.0-8.0); NEUTROPHILS # 3.6 10^3/uL (1.5-8.5); NEUTROPHILS % 58.6 % (36.0-66.0); PLATELET COUNT, AUTOMATED 174 10^3/uL (150-450); WHITE BLOOD COUNT 6.2 10^3/uL (4.0-10.0)
[2023-03-21 17:19] LABS: MAGNESIUM LEVEL 1.8 MG/DL (1.8-2.4); PHOSPHORUS LEVEL 4.4 MG/DL (2.4-5.1)
[2023-03-21 17:20] LABS: TOTAL 25(OH) VITAMIN D 129.1 NG/ML (20.0-100.0)
== END ==
LOC: M SFHCRHEU 14:33
PROVIDERS: ATTEND Internal Medicine
DX: R53.83 Other fatigue (principal); M79.10 Myalgia, unspecified site; Z79.899 Other long term (current) drug therapy

== ENCOUNTER → 2023-07-04 | Outpatient (REF) | payer MEDICARE, MEDICAID ==
[2023-07-04 18:10] LABS: PERCENT SATURATION 30.8 % (19.7-50.0)
[2023-07-04 18:14] LABS: TOTAL 25(OH) VITAMIN D 88.1 NG/ML (20.0-100.0)
== END ==
LOC: M SFHCRHEU 12:43
PROVIDERS: ATTEND Internal Medicine
DX: E67.3 Hypervitaminosis D (principal); E61.1 Iron deficiency

== ENCOUNTER 2023-07-13 23:43 | Emergency (ER) | payer MEDICARE, MEDICAID ==
[~2023-07-13] VITALS: Ht 182.9 cm; Wt 87.8 kg
[2023-07-14 00:39] LABS: RSV AMPLIFICATION POSITIVE (NEGATIVE)
[2023-07-14 03:00] VITALS: BP 136/84; TEMP 98.5; O2SAT 97
== END 2023-07-14 03:09 | disposition left against medical advice (07) ==
LOC: M ED 23:43
DX: Z53.21 Procedure and treatment not carried out due to patient leaving prior to being seen by health care provider (principal)

== ENCOUNTER → 2024-05-17 | Outpatient (CLI) | payer MEDICARE, MEDICAID | LOC: M RAD 08:54 | PROVIDERS: ATTEND Physician Assistant | DX: Z87.442 Personal history of urinary calculi (principal) ==

== ENCOUNTER → 2024-09-27 | Outpatient (CLI) | payer MEDICARE, MEDICAID | LOC: M PLAIMG 16:15 | PROVIDERS: ATTEND Chiropractor | DX: M99.02 Segmental and somatic dysfunction of thoracic region (principal); M51.34 Other intervertebral disc degeneration, thoracic region; M99.03 Segmental and somatic dysfunction of lumbar region; M51.360 Other intervertebral disc degeneration, lumbar region with discogenic back pain only; M99.01 Segmental and somatic dysfunction of cervical region; M50.31 Other cervical disc degeneration, high cervical region; M47.812 Spondylosis without myelopathy or radiculopathy, cervical region; M47.816 Spondylosis without myelopathy or radiculopathy, lumbar region; M43.16 Spondylolisthesis, lumbar region; M47.814 Spondylosis without myelopathy or radiculopathy, thoracic region ==

== ENCOUNTER → 2025-03-02 | Outpatient (CLI) | payer MEDICARE, MEDICAID ==
[2025-03-02 14:10] LABS: CREATININE FOR GFR 1.01 MG/DL (0.70-1.30); GLOMERULAR FILTRATION RATE 79.5 (>42)
== END ==
LOC: M PLALAB 10:11
PROVIDERS: ATTEND Orthopaedic Surgery
DX: M54.50 Low back pain, unspecified (principal)